=== PATIENT | female | born 1955 | race Caucasian/White ===

== ENCOUNTER 2017-01-10 12:04 | Inpatient (IN) | payer OTHER, MEDICARE ==
--- NOTE | 2017-01-10 12:40 | PDOC ---
History of Present Illness - General Chief Complaint: Chest Pain Stated Complaint: PCP SENT, CHEST PAIN, SOB Time Seen by Provider: 01/10/17 12:30 History Source: Patient Exam Limitations: No Limitations - History of Present Illness Initial Comments: CHIEF COMPLAINT: 61 y/o afebrile female with PMH HLD, COPD, HTN, GERD, IDDM, CHF, T7 compression fracture c/o back pain and SOB. HISTORY OF PRESENT ILLNESS: The patient states she has pain in T7, which she always has, but states today the pain became worse and began radiating around under both of her breasts. She states she cannot get comfortable and is short of breath. She did not take her narcotic pain medication because she doesn't like to take them. She denies f/c, n/v/d, abd pain, back pain, fall, new trauma to the back, numbness/tingling. Vital signs on arrival are within normal limits. REVIEW OF SYSTEMS: GENERAL/CONSTITUTIONAL: No fever/chills. No weakness. No weight change. HEAD, EYES, EARS, NOSE AND THROAT: No change in vision. No ear pain or discharge. No sore throat. CARDIOVASCULAR: +chest pain and SOB. RESPIRATORY: No cough, wheezing, or hemoptysis. GASTROINTESTINAL: No abd pain, nausea, vomiting, diarrhea. GENITOURINARY: No dysuria, frequency, or change in urination. MUSCULOSKELETAL: No joint or muscle swelling or pain. No neck pain. +upper back pain SKIN: No rash or easy bruising. NEUROLOGIC: No headache, vertigo, loss of consciousness, or loss of sensation. PHYSICAL EXAM: GENERAL: The patient is awake, alert, and fully oriented, in obvious discomfort. The patient is ambulatory but sitting very uncomfortably on the edge of the bed. She can speak in full sentences. HEAD: Normal with no signs of trauma. ENT: Pupils equal, round and reactive to light, extraocular movements intact, sclera anicteric, conjunctiva clear. Neck supple. LUNGS: Decreased breath sounds left lung chapman. Normal excursion. No respiratory distress or use of accessory muscles. CV: RRR, S1/S2, no MRG. Cap refill < 2 sec. ABDOMEN: Soft, non-distended, non-tender even to deep palpation, no hepatomegaly or splenomegaly, no masses. BACK: +midline thoracic spine TTP around the area of T7. EXTREMITIES: Normal range of motion, no edema. NEUROLOGICAL: Normal speech, normal gait. CN II-XII grossly intact. PSYCH: Normal mood, normal affect. SKIN: Warm, dry, normal turgor, no rashes or lesions noted. Past History - Past Medical History Allergies/Adverse Reactions: Allergies Allergy/AdvReac Type Severity Reaction Status Date / Time Latex, Natural Rubber Allergy Intermediate Hives Verified 01/10/17 12:17 Penicillins Allergy Intermediate Rash Verified 01/10/17 12:17 Home Medications: Ambulatory Orders Atorvastatin Ca [Lipitor] 10 mg PO HS 05/28/16 Budesonide/Formeterol Fumarate [SYMBICORT 160/4.5mcg -] 1 inh PO BID 05/28/16 Diltiazem HCl [Diltiazem 24Hr Cd] 120 mg PO DAILY 05/28/16 Folic Acid 1 mg PO DAILY 05/28/16 Levalbuterol HCl [Xopenex] 0.63 mg IH DAILY 05/28/16 Montelukast Na [Singulair -] 10 mg PO HS 05/28/16 Pantoprazole Sodium [Protonix] 40 mg PO DAILY 05/28/16 Spironolactone 25 mg PO DAILY 05/28/16 Zolpidem Tartrate [Ambien] 10 mg PO HS 05/28/16 Insulin Glargine,Hum.rec.anlog [Lantus (10mL VIAL) -] 18 units SQ AM 10/09/16 Insulin Glargine,Hum.rec.anlog [Lantus (10mL VIAL) -] 20 units SQ HS 10/09/16 Cephalexin Monohydrate [Keflex -] 500 mg PO Q6HPO #14 capsule 10/21/16 Furosemide [Lasix -] 120 mg PO BID@0600,1400 tablet 10/21/16 Guaifenesin/D-Methorphan Hb [Diabetic Tussin Dm -] 10 ml PO Q4H PRN #0 ml Heparin - 5,000 unit SQ BID vial 10/21/16 Mineral Oil/Petrolat,Wht/Water [Eucerin (Large Jar) -] 1 applic TP DAILY PRN #0 jar 10/21/16 Mometasone Furoate [Asmanex 220Mcg -] 2 puff IH BID inhaler 10/21/16 Oxycodone HCl [Roxicodone -] 10 mg PO Q6H PRN #0 tablet MDD 4 tabs 10/21/16 Polyethylene Glycol 3350 [Miralax 119 gm Btl -] 17 gm PO DAILY PRN #0 bottle Silver Sulfadiazine 1% Top Cr [Silvadene -] 1 applic TP DAILY jar 10/21/16 Anemia: No Asthma: Yes (NO RECENT ATTACK) Cancer: No Cardiac Disorders: No CVA: No COPD: Yes CHF: No Dementia: No Diabetes: Yes (IDDM) GI Disorders: Yes (ACID REFLUX) Disorders: No HTN: Yes Hypercholesterolemia: Yes Liver Disease: No Seizures: No Thyroid Disease: No Other medical history: compression fracture t7 - Surgical History Abdominal Surgery: No Appendectomy: Yes Cardiac Surgery: No Cholecystectomy: No Lung Surgery: No Neurologic Surgery: No Orthopedic Surgery: Yes (right hip sx,) - Psycho/Social/Smoking Cessation Hx Anxiety: No Suicidal Ideation: No Smoking Status: Yes Smoking History: Never smoked Have you smoked in the past 12 months: No Number of Cigarettes Smoked Daily: 0 If you are a former smoker, when did you quit?: 20 years ago Information on smoking cessation initiated: No Hx Alcohol Use: No Drug/Substance Use Hx: No Substance Use Type: None Hx Substance Use Treatment: No Cardiac Specific PMH - Complaint Specific PMHX Pacemaker: No *Physical Exam - Vital Signs Last Vital Signs Temp Pulse Resp BP Pulse Ox 98.3 F 74 20 107/60 95 01/10/17 16:08 01/10/17 16:08 01/10/17 16:08 01/10/17 16:08 01/10/17 16:08 ED Treatment Course - LABORATORY CBC & Chemistry Diagram: 01/10/17 14:30 01/10/17 14:30 - ADDITIONAL ORDERS Additional order review: Laboratory Results 01/10/17 01/10/17 14:30 13:30 Sodium 137 138 Potassium 3.2 L 3.4 L Chloride 95 L 92 L Carbon Dioxide 32 30 Anion Gap 10 16 BUN 22 H 21 H D Creatinine 1.3 H 1.4 H D Creat Clearance w eGFR 41.37 37.98 Random Glucose 138 H 155 H D Calcium 9.1 8.9 Total Bilirubin 0.6 0.7 D AST 25 31 D ALT 16 14 D Alkaline Phosphatase 123 H 133 H Creatine Kinase 95 Troponin I < 0.02 B-Natriuretic Peptide 407.24 H Total Protein 7.1 7.5 Albumin 2.9 L 3.1 L 01/10/17 01/10/17 14:30 13:30 RBC 3.97 D Cancelled MCV 95.9 Cancelled MCHC 33.7 Cancelled RDW 13.6 Cancelled MPV 8.2 Cancelled Neutrophils % 78.4 Cancelled Lymphocytes % 12.9 D Cancelled Monocytes % 7.0 Cancelled Eosinophils % 0.9 Cancelled Basophils % 0.8 Cancelled - RADIOLOGY Radiology Studies Ordered: Category Date Time Status CHEST CTA [CT] Stat CT Scan 01/10/17 15:[address] W/O CONTRAST [CT] Stat CT Scan 01/10/17 13:35 Completed CHEST X-RAY PORTABLE* [RAD] Stat Radiology 01/10/17 12:41 Completed - Medications Given in the ED: ED Medications Discontinued Medications Generic Name Dose Route Start Last Admin Trade Name Freq PRN Reason Stop Dose Admin Hydromorphone HCl 1 mg 01/10/17 13:55 01/10/17 14:00 Dilaudid Injection - IVPUSH 01/10/17 13:56 1 mg ONCE ONE Administration Hydromorphone HCl 1 mg 01/10/17 16:19 01/10/17 16:19 Dilaudid Injection - IVPUSH 01/10/17 16:20 1 mg NOW ONE Administration Morphine Sulfate 4 mg 01/10/17 12:41 01/10/17 12:59 Morphine Injection - IVPUSH 01/10/17 12:42 4 mg ONCE ONE Administration Morphine Sulfate 4 mg 01/10/17 13:49 01/10/17 14:00 Morphine Injection - IVPUSH 01/10/17 13:50 4 mg ONCE ONE Administration Medical Decision Making - Medical Decision Making A/P: 61 y/o female with back pain most likely secondary to T7 compression fracture radiating around to chest. Plan is as follows: 1. EKG 2. CXR 3. Labs 4. Thoracic spine CT 5. IV morphine After the morphine the patient was still in a considerable amount of pain. Ordered IV Dilaudid. CXR IMPRESSION: No change since 01/07/[address] IMPRESSION: A marked acute/subacute T7 vertebral body compression fracture is noted with mild bony retropulsion, approximately 3mm. This fracture appears mildly increased in compressive deformity in comparison to a thoracic spine MRI study of 01/05/17. The degree of retropulsion appears unchanged. Spoke with the patient and she now states she does feel some pain relief but when she moved to go to the bathroom she started to feel pain and SOB again. Would like to send for a chest CTA but her creatinine is 1.4. Called Dr. Curran for admission. Dr. Nicholson called for [facility] and accepts admission. *DC/Admit/Observation/Transfer Diagnosis at time of Disposition: Shortness of breath, Traumatic compression fracture of T7 thoracic vertebra Chest pain Qualifiers: Chest pain type: unspecified Qualified Code(s): R07.9 - Chest pain, unspecified - Discharge Dispostion Admit: Yes Decision to Admit order Date/Time: Decision to Admit Order Category Date Time Status Decision to Admit to Hospital Routine Admission 01/10/17 16:30 Active - Referrals Referrals: José Curran MD [Primary Care Provider] -
[2017-01-10] MEDS ORDERED: morphine CARPU-JECT 4 MG/1 ML DISP.SYRIN IVPUSH ONE ×2 (12:41→13:49)
[2017-01-10] MEDS ORDERED: morphine CARPU-JECT 4 MG/1 ML DISP.SYRIN ONE (12:46)
[2017-01-10] MEDS ORDERED: HYDROmorphone HCL CARPU-JECT 1 MG/1 ML DISP.SYRIN IVPUSH ONE ×2 (13:55→16:19)
[2017-01-10] MEDS ORDERED: HYDROmorphone HCL CARPU-JECT 1 MG/1 ML DISP.SYRIN ONE ×2 (13:56→16:05)
[2017-01-10 14:09] LABS: ALBUMIN 3.1 g/dl (3.4-5.0); ANION GAP 16 (8-16); BILIRUBIN,TOTAL 0.7 mg/dL (0.2-1.0); CALCIUM 8.9 mg/dL (8.5-10.1); CO2 30 mmol/L (21-32); CREATININE 1.4 mg/dL (0.55-1.02); GLUCOSE,RANDOM 155 mg/dL (74-106); SGPT/ALT 14 U/L (12-78); TOT PROT 7.5 g/dl (6.4-8.2)
[2017-01-10 14:12] LABS: ALK PHOS 133 U/L (45-117); TROPONIN I < 0.02 ng/ml (0.00-0.05)
[2017-01-10 14:19] LABS: SGOT/AST 31 U/L (15-37)
[2017-01-10 14:33] LABS: BASOPHIL 0.8 % (0-2.0); EOSINOPHIL 0.9 % (0-4.5); MCH 32.4 pg (25.7-33.7); MCHC 33.7 g/dl (32.0-36.0); MEAN CELL VOLUME 95.9 fl (80-96); MEAN PLT VOLUME 8.2 fl (7.5-11.1); NEUTROPHILS 78.4 % (42.8-82.8); PLATELET COUNT 355 K/MM3 (134-434); RDW 13.6 % (11.6-15.6); WHITE BLOOD COUNT 14.5 K/mm3 (4.0-10.0)
[2017-01-10 15:16] LABS: ALBUMIN 2.9 g/dl (3.4-5.0); BILIRUBIN,TOTAL 0.6 mg/dL (0.2-1.0); CALCIUM 9.1 mg/dL (8.5-10.1); CREATININE 1.3 mg/dL (0.55-1.02); TOT PROT 7.1 g/dl (6.4-8.2)
[2017-01-10 16:34] LABS: URINE APPEARANCE SLCLOUDY; URINE BILIRUBIN NEGATIVE (NEGATIVE); URINE BLOOD NEGATIVE (NEGATIVE); URINE COLOR YELLOW; URINE GLUCOSE (UA) NEGATIVE (NEGATIVE); URINE KETONE NEGATIVE (NEGATIVE); URINE NITRITE NEGATIVE (NEGATIVE); URINE PROTEIN NEGATIVE (NEGATIVE); URINE UROBILINOGEN NEGATIVE E.U./dl (0.2-1.0)
[2017-01-10 16:43] LABS: URINE LEUK ESTERASE TRACE (NEGATIVE)
[2017-01-10 16:44] LABS: URINE BACTERIA RARE /hpf (NONE SEEN); URINE HYALINE CAST 22 /lpf; URINE MUCUS RARE; URINE RBC <1 /hpf (0-3); URINE WBC 8 /hpf (3-5)
[2017-01-10] MEDS ORDERED: ALBUTEROL SO4 0.083% IH SOL 2.5 MG/3 ML VIAL.NEB. NEB ONE ×2 (16:45→19:15)
[2017-01-10] MEDS ORDERED: POTASSIUM CHLORIDE TABS 20 MEQ TABLET.ER (FP) PO ONE (17:16)
[2017-01-10] MEDS ORDERED: KETOROLAC TROMETHAMINE 15 MG/ML VIAL IVPB ONE (17:24)
[2017-01-10] MEDS ORDERED: CYCLOBENZAPRINE HCL 10 MG TABLET (FP) PO ONE (17:24)
[2017-01-10] MEDS ORDERED: predniSONE 20 MG TABLET (UD) PO ONE (17:25)
[2017-01-10] MEDS ORDERED: HYDROmorphone HCL CARPU-JECT 2 MG/1 ML DISP.SYRIN IVPB PRN (17:27)
[2017-01-10] MEDS ORDERED: KETOROLAC TROMETHAMINE 30 MG/1 ML VIAL ONE (17:29)
[2017-01-10] MEDS: KETOROLAC TROMETHAMINE 15 MG/ML VIAL IM ONE ×2 (17:31→17:36)
[2017-01-10 18:17] VITALS: BMI 36.5
[2017-01-10] MEDS: LIDOCAINE 5% TOPICAL PATCH TP SCH (18:54)
--- NOTE | 2017-01-10 20:38 | HP ---
Admitting History and Physical - Admission Chief Complaint: severe thoracic pain radiating to the right anterior hemithorax History of Present Illness: I was asked to see and evaluate this 61 y female , during Doctor Androne's absence. This is a 61 yo female with PMH of Chronic BAck pain, developed intractable back pain which developed spontaneously,without any triggering factors, difficult to control with her routine pain medications. The patient is tearful and unable to find a comfortable position while I am examining her. 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 venous changes) - Past Surgical History Past Surgical History: Yes: Appendectomy - Smoking History Smoking history: Former smoker Have you smoked in the past 12 months: No Aproximately how many cigarettes per day: 0 If you are a former smoker, when did you quit?: 20 years ago - Alcohol/Substance Use Hx Alcohol Use: No Home Medications - Allergies Allergies/Adverse Reactions: Allergies Allergy/AdvReac Type Severity Reaction Status Date / Time Latex, Natural Rubber Allergy Intermediate Hives Verified 01/10/17 12:17 Penicillins Allergy Intermediate Rash Verified 01/10/17 12:17 - Home Medications Home Medications: Ambulatory Orders Albuterol 2.5/Ipratropium 0.5 [Duoneb -] 1 amp NEB Q4H PRN #0 amp 01/15/17 Atorvastatin Ca [Lipitor] 10 mg PO HS tablet 01/15/17 Azithromycin [Zithromax 250mg Tablets -] 500 mg PO DAILY #6 tablet 01/15/17 Budesonide/Formeterol Fumarate [SYMBICORT 80/4.5mcg -] 2 puff IH BID inhaler Diltiazem Cd [Cardizem Cd -] 120 mg PO DAILY 01/15/17 Docusate Sodium [Colace -] 100 mg PO BID PRN #0 01/15/17 Folic Acid - 1 mg PO DAILY tablet 01/15/17 Furosemide [Lasix -] 120 mg PO BID@0600,1400 tablet 01/15/17 Guaifenesin [Robitussin -] 10 ml PO Q4H PRN #60 dose MDD 6 01/15/17 Hydromorphone [Dilaudid -] 4 mg PO Q4H PRN #120 tablet MDD 4 01/15/17 Insulin (Levemir) [Levemir Vial] 18 units SQ AM ml 01/15/17 Insulin (Levemir) [Levemir Vial] 20 units SQ HS ml 01/15/17 Insulin Sliding Scale [Novolog Vial Sliding Scale -] 1 vial SQ ACHS units 01/15 Lidocaine 5% Patch [Lidoderm -] 2 patch TP DAILY patch 01/15/17 Magnesium Hydrox 2400MG/30Ml [Milk of Magnesia -] 30 ml PO BID PRN #0 01/15/17 Methocarbamol [Robaxin -] 750 mg PO QID tablet 01/15/17 Mometasone Furoate [Asmanex 220Mcg -] 2 puff IH BID inhaler 01/15/17 Montelukast Na [Singulair -] 10 mg PO HS tablet 01/15/17 Pantoprazole Sodium [Protonix -] 40 mg PO DAILY 01/15/17 Polyethylene Glycol 3350 [Miralax 119 gm Btl -] 17 gm PO DAILY bottle 01/15/17 Potassium Chloride [K-Dur -] 40 meq PO BID 01/15/17 Spironolactone [Aldactone -] 25 mg PO DAILY tablet 01/15/17 Vitamin A & D Top Oint - 1 applic TP Q6HPO tube 01/15/17 Zolpidem Tartrate [Ambien] 5 mg PO HS PRN #30 tablet MDD 1 01/15/17 Review of Systems - Review of Systems Constitutional: reports: Other (severe pain) Eyes: reports: No Symptoms HENT: reports: No Symptoms, Gingival Bleeding Neck: reports: No Symptoms Cardiovascular: denies: Chest Pain, Palpitations, Shortness of Breath Respiratory: reports: No Symptoms Gastrointestinal: reports: Constipation Integumentary: reports: No Symptoms Neurological: reports: No Symptoms Psychiatric: reports: No Symptoms Physical Examination Vital Signs: Vital Signs Temperature 98.2 F 01/10/17 18:11 Pulse Rate 100 H 01/10/17 18:11 Respiratory Rate 20 01/10/17 18:11 Blood Pressure 145/83 01/10/17 18:11 O2 Sat by Pulse Oximetry (%) 95 03/18/17 18:22 Constitutional: Yes: Well Nourished, Severe Distress, Obese Eyes: Yes: Conjunctiva Clear, EOM Intact, PERRL HENT: Yes: Atraumatic, Normocephalic Neck: Yes: Supple, Trachea Midline Cardiovascular: Yes: Regular Rate and Rhythm, S1, S2 Respiratory: Yes: Regular, CTA Bilaterally Gastrointestinal: Yes: Normal Bowel Sounds, Soft, Abdomen, Obese. No: Hepatomegaly, Splenomegaly ...Rectal Exam: Yes: Deferred Musculoskeletal: Yes: Other (upper back pain, unable to find a comfortable position) Extremities: No: Calf Tenderness Edema: No Peripheral Pulses WNL: Yes Neurological: Yes: Alert, Oriented, Weakness (in the lower etxremities) Psychiatric: Yes: Alert, Oriented Problem List - Problems (1) Traumatic compression fracture of T7 thoracic vertebra Assessment/Plan: lidoderm patches Flexeril, dilaudid pain management consultation Code(s): S22.060A - WEDGE COMPRESSION FRACTURE OF T7-T8 VERTEBRA, INIT (2) Intractable pain Assessment/Plan: as above Code(s): R52 - PAIN, UNSPECIFIED (3) COPD (chronic obstructive pulmonary disease) with chronic bronchitis Code(s): J44.9 - CHRONIC OBSTRUCTIVE PULMONARY DISEASE, UNSPECIFIED (4) Chronic musculoskeletal pain Assessment/Plan: as above, dilaudid Code(s): M79.1 - MYALGIA G89.29 - OTHER CHRONIC PAIN (5) Hypokalemia Assessment/Plan: replenish potassium as needed Code(s): E87.6 - HYPOKALEMIA (6) Congestive heart failure Assessment/Plan: edema, correct diuretic dosage Code(s): I50.9 - HEART FAILURE, UNSPECIFIED (7) IDDM (insulin dependent diabetes mellitus) Assessment/Plan: continue LAntus 18 units q Am and 20 units Q pm Code(s): E11.9 - TYPE 2 DIABETES MELLITUS WITHOUT COMPLICATIONS Z79.4 - SKILLED NURSING (CURRENT) USE OF INSULIN
[2017-01-10] MEDS: HYDROmorphone HCL CARPU-JECT 1 MG/1 ML DISP.SYRIN IVPB PRN (21:15)
[2017-01-10] MEDS: CYCLOBENZAPRINE HCL 10 MG TABLET (FP) PO PRN (23:47)
[2017-01-10] MEDS: ZOLPIDEM TARTRATE 5 MG TABLET PO PRN (23:47)
[2017-01-10] MEDS: MOMETASONE FUROATE 220 MCG/IH INHALER IH SCH (23:48)
[2017-01-10] MEDS: ATORVASTATIN CA 10 MG TABLET (FP) PO SCH (23:48)
[2017-01-10] MEDS: INSULIN DETEMIR 100 UNITS/ML MDV SQ SCH (23:49)
[2017-01-10] MEDS: INSULIN SLIDING SCALE (NOVOLOG) 1 VIAL SQ SCH (23:50)
[2017-01-11] MEDS: HYDROmorphone HCL CARPU-JECT 1 MG/1 ML DISP.SYRIN IVPB PRN ×6 (01:50→22:44)
[2017-01-11] MEDS: FUROSEMIDE 40 MG TABLET (FP) PO SCH ×2 (06:18→14:26)
[2017-01-11] MEDS: INSULIN SLIDING SCALE (NOVOLOG) 1 VIAL SQ SCH ×4 (07:19→21:29)
[2017-01-11] MEDS: INSULIN DETEMIR 100 UNITS/ML MDV SQ SCH ×2 (07:19→21:31)
[2017-01-11] MEDS: ALBUTEROL SO4 0.083% IH SOL 2.5 MG/3 ML VIAL.NEB. NEB PRN ×2 (09:15→14:28)
[2017-01-11] MEDS ORDERED: PT OWN MED DRAWER 7, Y5N ONE (10:02)
[2017-01-11] MEDS: SPIRONOLACTONE 25 MG TABLET (FP) PO SCH (10:03)
[2017-01-11] MEDS: PANTOPRAZOLE 40 MG TABLET (FP) PO SCH (10:04)
[2017-01-11] MEDS: POLYETHYLENE GLYCOL 3350 119 GM BTL PO SCH (10:04)
[2017-01-11] MEDS: LIDOCAINE 5% TOPICAL PATCH TP SCH (10:04)
[2017-01-11] MEDS: MOMETASONE FUROATE 220 MCG/IH INHALER IH SCH ×2 (10:05→21:34)
[2017-01-11] MEDS: CYCLOBENZAPRINE HCL 10 MG TABLET (FP) PO PRN ×2 (10:29→20:19)
[2017-01-11] MEDS ORDERED: guaiFENesin 200 MG/10 ML 10 ML UNIT-DOSE CUPS PO PRN (13:53)
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
[2017-01-11] MEDS ORDERED: IBUPROFEN 600 MG TABLET (FP) PO PRN (13:57)
[2017-01-11] MEDS ORDERED: POTASSIUM CHLORIDE TABS 20 MEQ TABLET.ER (FP) PO SCH (14:00)
[2017-01-11] MEDS: FOLIC ACID 1 MG TABLET (FP) PO SCH (14:26)
[2017-01-11] MEDS: AZITHROMYCIN 250 MG TABLET (FP) PO SCH (14:35)
[2017-01-11] MEDS: BUDESONIDE/FORMETEROL FUMARATE 80/4.5 mcg INHALER IH SCH ×2 (17:40→21:34)
[2017-01-11] MEDS: VITAMINS A AND D TOPICAL OINTMENT 60 GM TUBE TP SCH (17:40)
[2017-01-11] MEDS: ATORVASTATIN CA 10 MG TABLET (FP) PO SCH (21:28)
[2017-01-11] MEDS: POTASSIUM CHLORIDE TABS 20 MEQ TABLET.ER (FP) PO SCH (21:28)
[2017-01-11] MEDS: MONTELUKAST NA 10 MG TABLET PO SCH (21:29)
[2017-01-12] MEDS: HYDROmorphone HCL CARPU-JECT 1 MG/1 ML DISP.SYRIN IVPB PRN ×4 (02:13→20:38)
[2017-01-12] MEDS: VITAMINS A AND D TOPICAL OINTMENT 60 GM TUBE TP SCH ×4 (02:17→17:28)
[2017-01-12] MEDS: CYCLOBENZAPRINE HCL 10 MG TABLET (FP) PO PRN ×2 (03:24→08:36)
[2017-01-12] MEDS: FUROSEMIDE 40 MG TABLET (FP) PO SCH ×2 (06:27→13:37)
[2017-01-12] MEDS: INSULIN SLIDING SCALE (NOVOLOG) 1 VIAL SQ SCH ×4 (06:27→21:50)
[2017-01-12] MEDS: INSULIN DETEMIR 100 UNITS/ML MDV SQ SCH ×2 (06:31→21:57)
[2017-01-12] MEDS: ALBUTEROL SO4 0.083% IH SOL 2.5 MG/3 ML VIAL.NEB. NEB PRN ×2 (06:37→13:18)
[2017-01-12 08:33] LABS: BASOPHIL 0.8 % (0-2.0); EOSINOPHIL 2.7 % (0-4.5); MCH 32.5 pg (25.7-33.7); MCHC 33.6 g/dl (32.0-36.0); MEAN CELL VOLUME 96.7 fl (80-96); MEAN PLT VOLUME 8.9 fl (7.5-11.1); NEUTROPHILS 66.6 % (42.8-82.8); PLATELET COUNT 300 K/MM3 (134-434); RDW 14.1 % (11.6-15.6); WHITE BLOOD COUNT 9.9 K/mm3 (4.0-10.0)
[2017-01-12 08:53] LABS: ALBUMIN 2.6 g/dl (3.4-5.0); ALK PHOS 290 U/L (45-117); ANION GAP 10 (8-16); BILIRUBIN,TOTAL 1.5 mg/dL (0.2-1.0); CALCIUM 8.8 mg/dL (8.5-10.1); CO2 35 mmol/L (21-32); CREATININE 0.8 mg/dL (0.55-1.02); GLUCOSE,RANDOM 133 mg/dL (74-106); SGOT/AST 191 U/L (15-37); SGPT/ALT 71 U/L (12-78); TOT PROT 6.7 g/dl (6.4-8.2)
--- NOTE | 2017-01-12 09:26 | PN ---
Progress Note (short form) - Note Progress Note: CT scan reviewed- acute T7 fracture. I will stop by later today to see the patient. The patient can consider a kyphoplasty.
[2017-01-12] MEDS ORDERED: PT OWN MED DRAWER 7, Y5N ONE ×3 (10:22→17:39)
[2017-01-12] MEDS: POTASSIUM CHLORIDE TABS 20 MEQ TABLET.ER (FP) PO SCH ×2 (10:30→21:57)
[2017-01-12] MEDS: PANTOPRAZOLE 40 MG TABLET (FP) PO SCH (10:30)
[2017-01-12] MEDS: AZITHROMYCIN 250 MG TABLET (FP) PO SCH (10:31)
[2017-01-12] MEDS: FOLIC ACID 1 MG TABLET (FP) PO SCH (10:33)
[2017-01-12] MEDS: SPIRONOLACTONE 25 MG TABLET (FP) PO SCH (10:33)
[2017-01-12] MEDS: DOCUSATE SODIUM 100 MG CAPSULE (FP) PO PRN (10:33)
[2017-01-12] MEDS: LIDOCAINE 5% TOPICAL PATCH TP SCH (10:34)
[2017-01-12] MEDS: POLYETHYLENE GLYCOL 3350 119 GM BTL PO SCH (10:35)
[2017-01-12] MEDS: MOMETASONE FUROATE 220 MCG/IH INHALER IH SCH ×2 (10:35→21:56)
[2017-01-12] MEDS: BUDESONIDE/FORMETEROL FUMARATE 80/4.5 mcg INHALER IH SCH ×2 (10:35→21:57)
[2017-01-12] MEDS ORDERED: MAGNESIUM HYDROX 2400MG/30ML ORAL SUSPENSION 30 ML CUP PO PRN (12:10)
--- NOTE | 2017-01-12 12:10 | PN ---
Progress Note, Physician Chief Complaint: patient still complaining of pain, but feel much better compared to the previous day, in no pain when sitting still, was tearful earlier today because of pain, complains of muscle spasms and Flexeril is not changing - Current Medication List Current Medications: Active Medications Albuterol Sulfate (Ventolin 0.083% Nebulizer Soln -) 1 amp NEB Q6H PRN PRN Reason: SHORT OF BREATH/WHEEZING Last Admin: 01/12/17 06:37 Dose: 1 amp Atorvastatin Calcium (Lipitor -) 10 mg PO HS [facility] Last Admin: 01/11/17 21:28 Dose: 10 mg Azithromycin (Zithromax -) 500 mg PO DAILY [facility] Stop: 01/15/17 23:59 Last Admin: 01/12/17 10:31 Dose: 500 mg Budesonide/Formoterol Fumarate (Symbicort 80/4.5mcg -) 2 puff IH BID [facility] Last Admin: 01/12/17 10:35 Dose: 2 inhaler Diltiazem HCl (Cardizem Cd -) 120 mg PO DAILY [facility] Last Admin: 01/12/17 10:33 Dose: 120 mg Docusate Sodium (Colace -) 100 mg PO BID PRN PRN Reason: CONSTIPATION Last Admin: 01/12/17 10:33 Dose: 100 mg Folic Acid (Folic Acid -) 1 mg PO DAILY [facility] Last Admin: 01/12/17 10:33 Dose: 1 mg Furosemide (Lasix -) 120 mg PO BID@0600,1400 [facility] Last Admin: 01/12/17 06:27 Dose: 120 mg Guaifenesin (Robitussin -) 10 ml PO Q4H PRN PRN Reason: COUGH Last Admin: 01/11/17 14:26 Dose: 10 ml Hydromorphone HCl (Dilaudid Injection -) 2 mg IVPB Q6H PRN PRN Reason: PAIN Hydromorphone HCl (Dilaudid Injection -) 1 mg IVPB Q4H PRN PRN Reason: PAIN Last Admin: 01/12/17 10:33 Dose: 1 mg Insulin Aspart (Novolog Vial Sliding Scale -) 0 vial SQ ACHS [facility] PRN Reason: Protocol Last Admin: 01/12/17 11:49 Dose: Not Given Insulin Detemir (Levemir Vial) 20 units SQ [facility] Last Admin: 01/11/17 21:31 Dose: 20 units Insulin Detemir (Levemir Vial) 18 units SQ AM [facility] Last Admin: 01/12/17 06:31 Dose: 18 units Lidocaine (Lidoderm Patch -) 2 patch TP DAILY [facility] Last Admin: 01/12/17 10:34 Dose: 2 patch Methocarbamol (Robaxin -) 750 mg PO QID [facility] Mometasone Furoate (Asmanex 220mcg -) 2 puff IH BID [facility] Last Admin: 01/12/17 10:35 Dose: 2 puff Montelukast Sodium (Singulair -) 10 mg PO HS [facility] Last Admin: 01/11/17 21:29 Dose: 10 mg Pantoprazole Sodium (Protonix -) 40 mg PO DAILY [facility] Last Admin: 01/12/17 10:30 Dose: 40 mg Polyethylene Glycol (Miralax (For Daily Use) -) 17 gm PO DAILY [facility] Last Admin: 01/12/17 10:35 Dose: Not Given Potassium Chloride (K-Dur -) 40 meq PO BID [facility] Last Admin: 01/12/17 10:30 Dose: 40 meq Spironolactone (Aldactone -) 25 mg PO DAILY [facility] Last Admin: 01/12/17 10:33 Dose: 25 mg Vitamin A/Vitamin D (Vitamin A & D Top Oint -) 1 applic TP Q6HPO [facility] Last Admin: 01/12/17 06:28 Dose: 1 applic Zolpidem Tartrate (Ambien -) 5 mg PO HS PRN PRN Reason: INSOMNIA Last Admin: 01/10/17 23:47 Dose: 5 mg - Objective Vital Signs: Vital Signs Temperature 98.1 F 01/12/17 06:17 Pulse Rate 86 01/12/17 06:17 Respiratory Rate 18 01/12/17 06:17 Blood Pressure 130/67 01/12/17 06:17 O2 Sat by Pulse Oximetry (%) 95 01/11/17 21:00 Constitutional: Yes: Calm Eyes: Yes: Conjunctiva Clear, EOM Intact HENT: Yes: Atraumatic, Normocephalic Neck: Yes: Supple, Trachea Midline Cardiovascular: Yes: Regular Rate and Rhythm, S1, S2 Respiratory: Yes: Regular, CTA Bilaterally Gastrointestinal: Yes: Normal Bowel Sounds, Soft, Abdomen, Obese ...Rectal Exam: Yes: Deferred Genitourinary: Yes: WNL Musculoskeletal: Yes: Other (edema of lower extremities) Extremities: Yes: Erythema (of anterior shins). No: Calf Tenderness Wound/Incision: Yes: Well Approximated Neurological: Yes: Alert, Oriented Psychiatric: Yes: Alert, Oriented Labs: CBC, BMP 01/12/17 07:00 01/12/17 07:00 Problem List - Problems (1) Traumatic compression fracture of T7 thoracic vertebra Assessment/Plan: lidoderm patches change Flexeril to Robaxin, continue dilaudid pain management consultation Code(s): S22.060A - WEDGE COMPRESSION FRACTURE OF T7-T8 VERTEBRA, INIT (2) COPD (chronic obstructive pulmonary disease) with chronic bronchitis Code(s): J44.9 - CHRONIC OBSTRUCTIVE PULMONARY DISEASE, UNSPECIFIED (3) Hypokalemia Assessment/Plan: replenish potassium with 40 Estelita po bid Code(s): E87.6 - HYPOKALEMIA (4) Constipation Assessment/Plan: milk of magnesia 30 cc po bid pr Code(s): K59.00 - CONSTIPATION, UNSPECIFIED
[2017-01-12] MEDS: METHOCARBAMOL 750 MG TABLET PO SCH ×3 (13:37→21:57)
--- NOTE | 2017-01-12 19:37 | CONSULT ---
Consult Consult Specialty:: pain medicine Referred by:: dr lee Reason for Consultation:: mid back pain - History of Present Illness Chief Complaint: mid back pain History of Present Illness: 61 year old woman with a history of mid back pain found to have severe compression T7 fracture. Patient has history of COPD and DM. Pain score 10/10. Patient was seen on Thursday in my office but could not wait to get work up completed due to pain. She denies numbness and tingling. - Past Medical History COUNSEL: Yes: Other (Back pain) Cardio/Vascular: Yes: HTN, Hyperlipdemia Pulmonary: Yes: COPD Gastrointestinal: Yes: GERD ...: No Endocrine: Yes: Diabetes Mellitus Dermatology: Yes: Other (Chr. venous changes) - Past Surgical History Past Surgical History: Yes: Appendectomy - Alcohol/Substance Use Hx Alcohol Use: No - Smoking History Smoking history: Former smoker Have you smoked in the past 12 months: No Aproximately how many cigarettes per day: 0 If you are a former smoker, when did you quit?: 20 years ago Home Medications - Allergies Allergies/Adverse Reactions: Allergies Allergy/AdvReac Type Severity Reaction Status Date / Time Latex, Natural Rubber Allergy Intermediate Hives Verified 01/10/17 12:17 Penicillins Allergy Intermediate Rash Verified 01/10/17 12:17 - Home Medications Home Medications: Ambulatory Orders Atorvastatin Ca [Lipitor] 10 mg PO HS 05/28/16 Diltiazem HCl [Diltiazem 24Hr Cd] 120 mg PO DAILY 05/28/16 Folic Acid 1 mg PO DAILY 05/28/16 Montelukast Na [Singulair -] 10 mg PO HS 05/28/16 Pantoprazole Sodium [Protonix] 40 mg PO DAILY 05/28/16 Spironolactone 25 mg PO DAILY 05/28/16 Zolpidem Tartrate [Ambien] 10 mg PO HS 05/28/16 Insulin Glargine,Hum.rec.anlog [Lantus (10mL VIAL) -] 18 units SQ AM 10/09/16 Insulin Glargine,Hum.rec.anlog [Lantus (10mL VIAL) -] 20 units SQ HS 10/09/16 Furosemide [Lasix -] 120 mg PO BID@0600,1400 tablet 10/21/16 Mometasone Furoate [Asmanex 220Mcg -] 2 puff IH BID inhaler 10/21/16 Oxycodone HCl [Roxicodone -] 10 mg PO Q6H PRN #0 tablet MDD 4 tabs 10/21/16 Polyethylene Glycol 3350 [Miralax 119 gm Btl -] 17 gm PO DAILY PRN #0 bottle Physical Exam Vital Signs: Vital Signs Temperature 99.5 F 01/12/17 15:28 Pulse Rate 98 H 01/12/17 15:28 Respiratory Rate 20 01/12/17 15:28 Blood Pressure 117/76 01/12/17 15:28 O2 Sat by Pulse Oximetry (%) 95 01/12/17 09:00 Musculoskeletal: Yes: Other (severe mid back pain) Labs: CBC, BMP 01/12/17 07:00 01/12/17 07:00 Assessment/Plan T7 Acute compression fracture Minimal retropulsion 1. FOr kyphoplasty tomorrow at 5:30. Patient understands all the risks including but not limited to infection, bleeding and cement extravasation and benefits and would like to procedure 2. Continue current pain meds 3. NPO after 9am tomorrow
[2017-01-12] MEDS: ATORVASTATIN CA 10 MG TABLET (FP) PO SCH (21:57)
[2017-01-12] MEDS: MONTELUKAST NA 10 MG TABLET PO SCH (21:57)
[2017-01-12] MEDS: ZOLPIDEM TARTRATE 5 MG TABLET PO PRN ×2 (22:00→22:01)
[2017-01-13] MEDS: HYDROmorphone HCL CARPU-JECT 1 MG/1 ML DISP.SYRIN IVPB PRN ×4 (03:28→23:42)
[2017-01-13] MEDS: INSULIN DETEMIR 100 UNITS/ML MDV SQ SCH ×2 (06:09→21:13)
[2017-01-13] MEDS: FUROSEMIDE 40 MG TABLET (FP) PO SCH ×2 (06:09→15:14)
[2017-01-13] MEDS: VITAMINS A AND D TOPICAL OINTMENT 60 GM TUBE TP SCH ×5 (06:10→17:49)
[2017-01-13] MEDS: INSULIN SLIDING SCALE (NOVOLOG) 1 VIAL SQ SCH ×4 (06:10→21:13)
[2017-01-13] MEDS: ALBUTEROL SO4 0.083% IH SOL 2.5 MG/3 ML VIAL.NEB. NEB PRN ×2 (07:46→11:17)
[2017-01-13] MEDS ORDERED: PT OWN MED DRAWER 7, Y5N ONE ×5 (09:04→17:32)
[2017-01-13] MEDS: SPIRONOLACTONE 25 MG TABLET (FP) PO SCH (09:08)
[2017-01-13] MEDS: PANTOPRAZOLE 40 MG TABLET (FP) PO SCH (09:08)
[2017-01-13] MEDS: DOCUSATE SODIUM 100 MG CAPSULE (FP) PO PRN (09:08)
[2017-01-13] MEDS: METHOCARBAMOL 500 MG TABLET PO SCH ×4 (09:09→21:13)
[2017-01-13] MEDS: FOLIC ACID 1 MG TABLET (FP) PO SCH (09:09)
[2017-01-13] MEDS: POTASSIUM CHLORIDE TABS 20 MEQ TABLET.ER (FP) PO SCH ×2 (09:09→21:12)
[2017-01-13] MEDS: AZITHROMYCIN 250 MG TABLET (FP) PO SCH (09:09)
[2017-01-13] MEDS: LIDOCAINE 5% TOPICAL PATCH TP SCH (09:09)
[2017-01-13] MEDS: MOMETASONE FUROATE 220 MCG/IH INHALER IH SCH ×2 (09:10→21:12)
[2017-01-13] MEDS: BUDESONIDE/FORMETEROL FUMARATE 80/4.5 mcg INHALER IH SCH ×2 (09:10→21:14)
[2017-01-13] MEDS: POLYETHYLENE GLYCOL 3350 119 GM BTL PO SCH (09:10)
[2017-01-13 10:03] LABS: ALBUMIN 2.9 g/dl (3.4-5.0); ALK PHOS 275 U/L (45-117); ANION GAP 8 (8-16); CALCIUM 9.4 mg/dL (8.5-10.1); CO2 35 mmol/L (21-32); CREATININE 0.8 mg/dL (0.55-1.02); GLUCOSE,RANDOM 96 mg/dL (74-106); SGOT/AST 74 U/L (15-37); SGPT/ALT 57 U/L (12-78); TOT PROT 7.4 g/dl (6.4-8.2)
[2017-01-13 10:05] LABS: BASOPHIL 0.9 % (0-2.0); EOSINOPHIL 5.2 % (0-4.5); MCHC 32.6 g/dl (32.0-36.0); MEAN CELL VOLUME 98.2 fl (80-96); MEAN PLT VOLUME 9.5 fl (7.5-11.1); NEUTROPHILS 59.9 % (42.8-82.8); PLATELET COUNT 341 K/MM3 (134-434); WHITE BLOOD COUNT 12.2 K/mm3 (4.0-10.0)
--- NOTE | 2017-01-13 13:18 | EKG ---
Test Reason : Blood Pressure : / mmHG Vent. Rate : 088 BPM Atrial Rate : 088 BPM P-R Int : 166 ms QRS Dur : 094 ms QT Int : 420 ms P-R-T Axes : 057 008 031 degrees QTc Int : 508 ms POOR DATA QUALITY, INTERPRETATION MAY BE ADVERSELY AFFECTED NORMAL SINUS RHYTHM POSSIBLE LEFT ATRIAL ENLARGEMENT CANNOT RULE OUT ANTERIOR INFARCT (CITED ON OR BEFORE 09-OCT-2016) ABNORMAL ECG WHEN COMPARED WITH ECG OF 09-OCT-2016 17:35, NO SIGNIFICANT CHANGE WAS FOUND Confirmed by ANAIS BATES, ZENA ([id number]), offline editor JOHNNY BUCKNER ([id number]) on 01/13/2017 1:18:14 PM Referred By: Confirmed By:ZENA MANZO MD
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
[2017-01-13] MEDS ORDERED: MIDAZOLAM HCL 2 MG/2 ML SINGLE DOSE VIAL ONE ×2 (17:59)
[2017-01-13] MEDS ORDERED: PROPOFOL 20 ML ONE ×2 (18:18→18:25)
[2017-01-13] MEDS ORDERED: CLINDAMYCIN PHOSPHATE 600 MG/4 ML VIAL ONE (18:21)
[2017-01-13] MEDS ORDERED: CLINDAMYCIN 900 MG PREMIX BAG IVPB ONE (18:23)
[2017-01-13] MEDS ORDERED: BUPIVACAINE HCL/PF 0.25% (2.5MG/ML) 10 ML VIAL IJ ONE (18:27)
[2017-01-13] MEDS ORDERED: BUPIVACAINE HCL/PF 0.25% (2.5MG/ML) 10 ML VIAL ONE (18:27)
[2017-01-13] MEDS ORDERED: IOHEXOL 180 MG/1 ML ML IJ ONE (18:31)
[2017-01-13] MEDS ORDERED: MINERAL OIL/PETROLATUM,WHITE 3.5 GM TUBE ONE (18:36)
--- NOTE | 2017-01-13 18:49 | PN ---
Progress Note (short form) - Note Progress Note: Status post kyphoplasty at T7 with biopsy No complications. Please avoid blood thinners for 24hrs. Activity as tolerated. Patient may be discharged tomorrow if patient is feeling better. She should follow up with me in 1 week in my office.
[2017-01-13] MEDS ORDERED: ONDANSETRON 4 MG/2 ML VIAL IVPUSH PRN (18:56)
[2017-01-13] MEDS ORDERED: MAGNESIUM HYDROX 2400MG/30ML ORAL SUSPENSION 30 ML CUP PO PRN (18:59)
[2017-01-13] MEDS ORDERED: guaiFENesin 200 MG/10 ML 10 ML UNIT-DOSE CUPS PO PRN (18:59)
[2017-01-13] MEDS ORDERED: HYDROmorphone HCL CARPU-JECT 2 MG/1 ML DISP.SYRIN IVPB PRN (18:59)
--- NOTE | 2017-01-13 19:56 | PN ---
Progress Note, Physician History of Present Illness: Pt with back pain, worse when turning in the bed. No SOB, CP, Palp, Cough, abd pain Pt was seen in Am on the floor - Current Medication List Current Medications: Active Medications Albuterol Sulfate (Ventolin 0.083% Nebulizer Soln -) 1 amp NEB Q6H PRN PRN Reason: SHORT OF BREATH/WHEEZING Atorvastatin Calcium (Lipitor -) 10 mg PO HS [facility] Azithromycin (Zithromax -) 500 mg PO DAILY [facility] Stop: 01/15/17 23:59 Budesonide/Formoterol Fumarate (Symbicort 80/4.5mcg -) 2 puff IH BID [facility] Diltiazem HCl (Cardizem Cd -) 120 mg PO DAILY [facility] Docusate Sodium (Colace -) 100 mg PO BID PRN PRN Reason: CONSTIPATION Fentanyl (Sublimaze Injection -) 50 mcg IVPUSH [id number] PRN PRN Reason: PAIN Stop: 01/16/17 18:57 Last Admin: 01/13/17 19:03 Dose: 50 mcg Folic Acid (Folic Acid -) 1 mg PO DAILY [facility] Furosemide (Lasix -) 120 mg PO BID@0600,1400 [facility] Guaifenesin (Robitussin -) 10 ml PO Q4H PRN PRN Reason: COUGH Hydromorphone HCl (Dilaudid Injection -) 2 mg IVPB Q6H PRN PRN Reason: PAIN Hydromorphone HCl (Dilaudid Injection -) 1 mg IVPB Q4H PRN PRN Reason: PAIN Insulin Aspart (Novolog Vial Sliding Scale -) 1 vial SQ ACHS [facility] PRN Reason: Protocol Insulin Detemir (Levemir Vial) 20 units SQ HS [facility] Insulin Detemir (Levemir Vial) 18 units SQ AM [facility] Lidocaine (Lidoderm Patch -) 2 patch TP DAILY [facility] Magnesium Hydroxide (Milk Of Magnesia -) 30 ml PO BID PRN PRN Reason: CONSTIPATION Methocarbamol (Robaxin -) 750 mg PO QID [facility] Mometasone Furoate (Asmanex 220mcg -) 2 puff IH BID [facility] Montelukast Sodium (Singulair -) 10 mg PO HS [facility] Ondansetron HCl (Zofran Injection) 4 mg IVPUSH Q6H PRN PRN Reason: NAUSEA AND/OR VOMITING Stop: 01/14/17 00:57 Pantoprazole Sodium (Protonix -) 40 mg PO DAILY [facility] Polyethylene Glycol (Miralax (For Daily Use) -) 17 gm PO DAILY [facility] Potassium Chloride (K-Dur -) 40 meq PO BID [facility] Spironolactone (Aldactone -) 25 mg PO DAILY [facility] Vitamin A/Vitamin D (Vitamin A & D Top Oint -) 1 applic TP Q6HPO [facility] Zolpidem Tartrate (Ambien -) 5 mg PO HS PRN PRN Reason: INSOMNIA - Objective Vital Signs: Vital Signs Temperature 98.4 F 01/13/17 18:49 Pulse Rate 80 01/13/17 19:30 Respiratory Rate 23 01/13/17 19:30 Blood Pressure 132/67 01/13/17 19:30 O2 Sat by Pulse Oximetry (%) 97 01/13/17 19:30 Constitutional: Yes: No Distress, Calm Cardiovascular: Yes: Regular Rate and Rhythm, S1, S2 Respiratory: Yes: Regular, Other (coarse BS bilat at bases) Gastrointestinal: Yes: Normal Bowel Sounds, Soft, Tenderness Integumentary: Yes: Venous Stasis Changes Neurological: Yes: Alert, Oriented Labs: CBC, BMP 01/13/17 07:30 01/13/17 07:30 Problem List - Problems (1) Traumatic compression fracture of T7 thoracic vertebra Assessment/Plan: Kyphoplasty per Dr. Beal Cardio evmaura. Pain control. Code(s): S22.060A - WEDGE COMPRESSION FRACTURE OF T7-T8 VERTEBRA, INIT (2) COPD (chronic obstructive pulmonary disease) with chronic bronchitis Assessment/Plan: O2 suplementatin. Asmanex Albuterol nebulized, PRN Code(s): J44.9 - CHRONIC OBSTRUCTIVE PULMONARY DISEASE, UNSPECIFIED (3) HTN (hypertension) Assessment/Plan: Cont meds To monitor BP Code(s): I10 - ESSENTIAL (PRIMARY) HYPERTENSION Qualifiers: Hypertension type: essential hypertension Qualified Code(s): I10 - Essential (primary) hypertension (4) Hypercholesterolemia Assessment/Plan: Cont. Rx. Code(s): E78.00 - PURE HYPERCHOLESTEROLEMIA, UNSPECIFIED (5) Diabetes mellitus Assessment/Plan: insuline SQ Diet Code(s): E11.9 - TYPE 2 DIABETES MELLITUS WITHOUT COMPLICATIONS Assessment/Plan AM labs
[2017-01-13] MEDS: ATORVASTATIN CA 10 MG TABLET (FP) PO SCH (21:12)
[2017-01-13] MEDS: MONTELUKAST NA 10 MG TABLET PO SCH (21:14)
[2017-01-13] MEDS: ZOLPIDEM TARTRATE 5 MG TABLET PO PRN (23:54)
[2017-01-14] MEDS: HYDROmorphone HCL CARPU-JECT 1 MG/1 ML DISP.SYRIN IVPB PRN (05:11)
[2017-01-14] MEDS: VITAMINS A AND D TOPICAL OINTMENT 60 GM TUBE TP SCH ×5 (06:15→19:39)
[2017-01-14] MEDS: INSULIN SLIDING SCALE (NOVOLOG) 1 VIAL SQ SCH ×4 (06:18→22:16)
[2017-01-14] MEDS: INSULIN DETEMIR 100 UNITS/ML MDV SQ SCH ×2 (06:23→22:16)
[2017-01-14] MEDS: FUROSEMIDE 40 MG TABLET (FP) PO SCH ×2 (06:24→13:55)
[2017-01-14] MEDS: ALBUTEROL SO4 0.083% IH SOL 2.5 MG/3 ML VIAL.NEB. NEB PRN ×2 (07:01→10:29)
[2017-01-14 07:55] LABS: MCHC 32.6 g/dl (32.0-36.0); MEAN CELL VOLUME 98.1 fl (80-96); PLATELET COUNT 311 K/MM3 (134-434); RDW 14.2 % (11.6-15.6)
[2017-01-14 09:23] LABS: CALCIUM 9.2 mg/dL (8.5-10.1); CREATININE 0.7 mg/dL (0.55-1.02)
[2017-01-14] MEDS ORDERED: PT OWN MED DRAWER 7, Y5N ONE ×7 (10:01→22:24)
[2017-01-14] MEDS: POTASSIUM CHLORIDE TABS 20 MEQ TABLET.ER (FP) PO SCH ×2 (10:05→22:00)
[2017-01-14] MEDS: FOLIC ACID 1 MG TABLET (FP) PO SCH (10:05)
[2017-01-14] MEDS: SPIRONOLACTONE 25 MG TABLET (FP) PO SCH (10:05)
[2017-01-14] MEDS: PANTOPRAZOLE 40 MG TABLET (FP) PO SCH (10:06)
[2017-01-14] MEDS: POLYETHYLENE GLYCOL 3350 119 GM BTL PO SCH (10:06)
[2017-01-14] MEDS: AZITHROMYCIN 250 MG TABLET (FP) PO SCH (10:07)
[2017-01-14] MEDS: MOMETASONE FUROATE 220 MCG/IH INHALER IH SCH ×2 (10:07→22:07)
[2017-01-14] MEDS: BUDESONIDE/FORMETEROL FUMARATE 80/4.5 mcg INHALER IH SCH ×2 (10:07→22:06)
[2017-01-14] MEDS: DOCUSATE SODIUM 100 MG CAPSULE (FP) PO PRN (10:14)
[2017-01-14] MEDS: METHOCARBAMOL 500 MG TABLET PO SCH ×4 (10:15→22:02)
[2017-01-14] MEDS: LIDOCAINE 5% TOPICAL PATCH TP SCH (10:21)
--- NOTE | 2017-01-14 10:46 | PN ---
Progress Note, Physician History of Present Illness: Reports cough and wheeze, still with back discomfort. - Current Medication List Current Medications: Active Medications Albuterol Sulfate (Ventolin 0.083% Nebulizer Soln -) 1 amp NEB Q6H PRN PRN Reason: SHORT OF BREATH/WHEEZING Last Admin: 01/14/17 10:29 Dose: 1 amp Atorvastatin Calcium (Lipitor -) 10 mg PO [facility] Last Admin: 01/13/17 21:12 Dose: 10 mg Azithromycin (Zithromax -) 500 mg PO DAILY [facility] Stop: 01/15/17 23:59 Last Admin: 01/14/17 10:07 Dose: 500 mg Budesonide/Formoterol Fumarate (Symbicort 80/4.5mcg -) 2 puff IH BID [facility] Last Admin: 01/14/17 10:07 Dose: 2 puff Diltiazem HCl (Cardizem Cd -) 120 mg PO DAILY [facility] Last Admin: 01/14/17 10:05 Dose: 120 mg Docusate Sodium (Colace -) 100 mg PO BID PRN PRN Reason: CONSTIPATION Last Admin: 01/14/17 10:14 Dose: 100 mg Fentanyl (Sublimaze Injection -) 50 mcg IVPUSH [id number] PRN PRN Reason: PAIN Stop: 01/16/17 18:57 Last Admin: 01/13/17 19:03 Dose: 50 mcg Folic Acid (Folic Acid -) 1 mg PO DAILY [facility] Last Admin: 01/14/17 10:05 Dose: 1 mg Furosemide (Lasix -) 120 mg PO BID@0600,1400 [facility] Last Admin: 01/14/17 06:24 Dose: 120 mg Guaifenesin (Robitussin -) 10 ml PO Q4H PRN PRN Reason: COUGH Hydromorphone HCl (Dilaudid Injection -) 2 mg IVPB Q6H PRN PRN Reason: PAIN Hydromorphone HCl (Dilaudid Injection -) 1 mg IVPB Q4H PRN PRN Reason: PAIN Last Admin: 01/14/17 05:11 Dose: 1 mg Insulin Aspart (Novolog Vial Sliding Scale -) [address] [facility] PRN Reason: Protocol Last Admin: 01/14/17 06:18 Dose: Not Given Insulin Detemir (Levemir Vial) 20 units SQ [facility] Last Admin: 01/13/17 21:13 Dose: 20 unit Insulin Detemir (Levemir Vial) 18 units SQ AM [facility] Last Admin: 01/14/17 06:23 Dose: 18 unit Lidocaine (Lidoderm Patch -) 2 patch TP DAILY [facility] Last Admin: 01/14/17 10:21 Dose: 2 patch Magnesium Hydroxide (Milk Of Magnesia -) 30 ml PO BID PRN PRN Reason: CONSTIPATION Methocarbamol (Robaxin -) 750 mg PO QID [facility] Last Admin: 01/14/17 10:15 Dose: 750 mg Mometasone Furoate (Asmanex 220mcg -) 2 puff IH BID [facility] Last Admin: 01/14/17 10:07 Dose: 2 puff Montelukast Sodium (Singulair -) 10 mg PO HS [facility] Last Admin: 01/13/17 21:14 Dose: 10 mg Pantoprazole Sodium (Protonix -) 40 mg PO DAILY [facility] Last Admin: 01/14/17 10:06 Dose: 40 mg Polyethylene Glycol (Miralax (For Daily Use) -) 17 gm PO DAILY [facility] Last Admin: 01/14/17 10:06 Dose: Not Given Potassium Chloride (K-Dur -) 40 meq PO BID [facility] Last Admin: 01/14/17 10:05 Dose: 40 meq Spironolactone (Aldactone -) 25 mg PO DAILY [facility] Last Admin: 01/14/17 10:05 Dose: 25 mg Vitamin A/Vitamin D (Vitamin A & D Top Oint -) 1 applic TP Q6HPO [facility] Last Admin: 01/14/17 06:15 Dose: Not Given Zolpidem Tartrate (Ambien -) 5 mg PO PRN PRN Reason: INSOMNIA Last Admin: 01/13/17 23:54 Dose: 5 mg - Objective Vital Signs: Vital Signs Temperature 98.4 F 01/14/17 06:00 Pulse Rate 96 H 01/14/17 10:05 Respiratory Rate 20 01/14/17 06:00 Blood Pressure 117/61 01/14/17 06:00 O2 Sat by Pulse Oximetry (%) 98 01/14/17 10:05 Constitutional: Yes: No Distress, Calm Neck: Yes: Supple Cardiovascular: Yes: Regular Rate and Rhythm Respiratory: Yes: Regular, Diminished, Wheezes Gastrointestinal: Yes: Normal Bowel Sounds, Soft Edema: Yes Edema: LLE: Trace, RLE: Trace Labs: CBC, BMP 01/14/17 06:45 01/14/17 06:45 Problem List - Problems (1) Diabetes mellitus Code(s): E11.9 - TYPE 2 DIABETES MELLITUS WITHOUT COMPLICATIONS Qualifiers: Diabetes mellitus type: type 2 (2) Hypercholesterolemia Code(s): E78.00 - PURE HYPERCHOLESTEROLEMIA, UNSPECIFIED (3) Shortness of breath Code(s): R06.02 - SHORTNESS OF BREATH (4) Traumatic compression fracture of T7 thoracic vertebra Code(s): S22.060A - WEDGE COMPRESSION FRACTURE OF T7-T8 VERTEBRA, INIT (5) COPD (chronic obstructive pulmonary disease) with chronic bronchitis Code(s): J44.9 - CHRONIC OBSTRUCTIVE PULMONARY DISEASE, UNSPECIFIED (6) HTN (hypertension) Code(s): I10 - ESSENTIAL (PRIMARY) HYPERTENSION Qualifiers: Hypertension type: essential hypertension Qualified Code(s): I10 - Essential (primary) hypertension (7) IDDM (insulin dependent diabetes mellitus) Code(s): E11.9 - TYPE 2 DIABETES MELLITUS WITHOUT COMPLICATIONS Z79.4 - ALF (CURRENT) USE OF INSULIN Assessment/Plan transthoracic echocardiography (05/08/16) showed normal LV systolic function, dense MAC, mild MR and TR. Dobutamine Myocardial Perfusion imaging (07/30/16) showed small apical thinning with normal LVEF 84% 1. Compression fracture of thoracic vertebral body (T7) post kyphoplasty and biopsy 2. Hypertension 3. Insulin requiring diabetes mellitus 4. Hypercholesterolemia 5. COPD 6. OSAS 7. Pulmonary HTN PLAN: 1. Continue present cardiac medications including Cardizem CD 120 qd, Lipitor 10 qhs, Aldactone 25 qd and Furosemide 120 bid Monitor renal function and electrolytes 2. Pain management 3. Bronchodilators, O2, IS, abx and ambulate as tolerated.
[2017-01-14] MEDS ORDERED: oxyCODONE HCL 5 MG TABLET PO PRN (11:41)
--- NOTE | 2017-01-14 11:50 | PN ---
Progress Note, Physician History of Present Illness: Pt with back pain, staqtes thet she is not better after procedure, want pain medication changed back to PO No SOB, CP, Palp, Cough, abd pain - Current Medication List Current Medications: Active Medications Albuterol/Ipratropium (Duoneb -) 1 amp NEB Q4H PRN PRN Reason: SHORTNESS OF BREATH Atorvastatin Calcium (Lipitor -) 10 mg PO HS [facility] Last Admin: 01/13/17 21:12 Dose: 10 mg Azithromycin (Zithromax -) 500 mg PO DAILY [facility] Stop: 01/15/17 23:59 Last Admin: 01/14/17 10:07 Dose: 500 mg Budesonide/Formoterol Fumarate (Symbicort 80/4.5mcg -) 2 puff IH BID [facility] Last Admin: 01/14/17 10:07 Dose: 2 puff Diltiazem HCl (Cardizem Cd -) 120 mg PO DAILY [facility] Last Admin: 01/14/17 10:05 Dose: 120 mg Docusate Sodium (Colace -) 100 mg PO BID PRN PRN Reason: CONSTIPATION Last Admin: 01/14/17 10:14 Dose: 100 mg Folic Acid (Folic Acid -) 1 mg PO DAILY [facility] Last Admin: 01/14/17 10:05 Dose: 1 mg Furosemide (Lasix -) 120 mg PO BID@0600,1400 [facility] Last Admin: 01/14/17 06:24 Dose: 120 mg Guaifenesin (Robitussin -) 10 ml PO Q4H PRN PRN Reason: COUGH Insulin Aspart (Novolog Vial Sliding Scale -) 1 vial SQ ACHS [facility] PRN Reason: Protocol Last Admin: 01/14/17 11:29 Dose: 2 units Insulin Detemir (Levemir Vial) 20 units SQ HS [facility] Last Admin: 01/13/17 21:13 Dose: 20 unit Insulin Detemir (Levemir Vial) 18 units SQ AM [facility] Last Admin: 01/14/17 06:23 Dose: 18 unit Lidocaine (Lidoderm Patch -) 2 patch TP DAILY [facility] Last Admin: 01/14/17 10:21 Dose: 2 patch Magnesium Hydroxide (Milk Of Magnesia -) 30 ml PO BID PRN PRN Reason: CONSTIPATION Methocarbamol (Robaxin -) 750 mg PO QID [facility] Last Admin: 01/14/17 10:15 Dose: 750 mg Mometasone Furoate (Asmanex 220mcg -) 2 puff IH BID [facility] Last Admin: 01/14/17 10:07 Dose: 2 puff Montelukast Sodium (Singulair -) 10 mg PO HS [facility] Last Admin: 01/13/17 21:14 Dose: 10 mg Oxycodone HCl (Roxicodone -) 10 mg PO Q6H PRN PRN Reason: PAIN SCALE 6-10 Pantoprazole Sodium (Protonix -) 40 mg PO DAILY [facility] Last Admin: 01/14/17 10:06 Dose: 40 mg Polyethylene Glycol (Miralax (For Daily Use) -) 17 gm PO DAILY [facility] Last Admin: 01/14/17 10:06 Dose: Not Given Potassium Chloride (K-Dur -) 40 meq PO BID [facility] Last Admin: 01/14/17 10:05 Dose: 40 meq Spironolactone (Aldactone -) 25 mg PO DAILY [facility] Last Admin: 01/14/17 10:05 Dose: 25 mg Vitamin A/Vitamin D (Vitamin A & D Top Oint -) 1 applic TP Q6HPO [facility] Last Admin: 01/14/17 06:15 Dose: Not Given Zolpidem Tartrate (Ambien -) 5 mg PO HS PRN PRN Reason: INSOMNIA Last Admin: 01/13/17 23:54 Dose: 5 mg - Objective Vital Signs: Vital Signs Temperature 98.4 F 01/14/17 06:00 Pulse Rate 96 H 01/14/17 10:05 Respiratory Rate 20 01/14/17 06:00 Blood Pressure 117/61 01/14/17 06:00 O2 Sat by Pulse Oximetry (%) 98 01/14/17 10:05 Constitutional: Yes: No Distress, Other (sitting in the chair) Cardiovascular: Yes: Regular Rate and Rhythm, S1, S2 Respiratory: Yes: Regular, Rhonchi (scaterred bilat.), Wheezes (minimal, scattered) Gastrointestinal: Yes: Normal Bowel Sounds, Soft. No: Tenderness Integumentary: Yes: Venous Stasis Changes Neurological: Yes: Alert, Oriented Labs: CBC, BMP 01/14/17 06:45 01/14/17 06:45 Problem List - Problems (1) Traumatic compression fracture of T7 thoracic vertebra Assessment/Plan: s/p Kyphoplasty yesterday. Per Dr. Gray note - from yesterday- to consider DC ; I d/w pt; to find out is PT can be started today ( from Dr. Gray). Cardio eval and f/u appreciated. Pain control- to change back to Oxycodone. Incentive spirometry. Code(s): S22.060A - WEDGE COMPRESSION FRACTURE OF T7-T8 VERTEBRA, INIT (2) COPD (chronic obstructive pulmonary disease) with chronic bronchitis Assessment/Plan: O2 supplementation. Asmanex Albuterol nebulized, PRN Code(s): J44.9 - CHRONIC OBSTRUCTIVE PULMONARY DISEASE, UNSPECIFIED (3) HTN (hypertension) Assessment/Plan: Cont meds To monitor BP Code(s): I10 - ESSENTIAL (PRIMARY) HYPERTENSION Qualifiers: Hypertension type: essential hypertension Qualified Code(s): I10 - Essential (primary) hypertension (4) Hypercholesterolemia Assessment/Plan: Cont. Rx. Code(s): E78.00 - PURE HYPERCHOLESTEROLEMIA, UNSPECIFIED (5) Diabetes mellitus Assessment/Plan: insuline SQ Diet Code(s): E11.9 - TYPE 2 DIABETES MELLITUS WITHOUT COMPLICATIONS Qualifiers: Diabetes mellitus type: type 2
[2017-01-14] MEDS: ALBUTEROL SO4 2.5/IPRATROPIUM 0.5 INH SOL 3 ML VIAL.NEB. NEB PRN ×2 (13:35→18:45)
--- NOTE | 2017-01-14 19:08 | PN ---
Progress Note (short form) - Note Progress Note: Patient seen and examined today. patient reports some improvement in her pain but she continues to have trouble taking a deep breath due to pain. The patient would benefit from short term rehab. Her activity is only limited by pain- there are no formal restrictions. The patient can follow up with me as an outpatient.
[2017-01-14] MEDS: MONTELUKAST NA 10 MG TABLET PO SCH (22:01)
[2017-01-14] MEDS: ATORVASTATIN CA 10 MG TABLET (FP) PO SCH (22:01)
[2017-01-14] MEDS: ZOLPIDEM TARTRATE 5 MG TABLET PO PRN (23:21)
[2017-01-15] MEDS: VITAMINS A AND D TOPICAL OINTMENT 60 GM TUBE TP SCH ×3 (00:05→13:32)
[2017-01-15] MEDS: FUROSEMIDE 40 MG TABLET (FP) PO SCH ×2 (05:25→13:32)
[2017-01-15] MEDS: INSULIN DETEMIR 100 UNITS/ML MDV SQ SCH ×2 (06:37→21:50)
[2017-01-15] MEDS: INSULIN SLIDING SCALE (NOVOLOG) 1 VIAL SQ SCH ×4 (06:37→21:50)
[2017-01-15] MEDS ORDERED: PT OWN MED DRAWER 7, Y5N ONE (09:08)
[2017-01-15] MEDS: MOMETASONE FUROATE 220 MCG/IH INHALER IH SCH ×3 (09:10→21:39)
[2017-01-15] MEDS: POTASSIUM CHLORIDE TABS 20 MEQ TABLET.ER (FP) PO SCH ×2 (09:11→21:39)
[2017-01-15] MEDS: SPIRONOLACTONE 25 MG TABLET (FP) PO SCH (09:11)
[2017-01-15] MEDS: FOLIC ACID 1 MG TABLET (FP) PO SCH (09:11)
[2017-01-15] MEDS: LIDOCAINE 5% TOPICAL PATCH TP SCH (09:12)
[2017-01-15] MEDS: POLYETHYLENE GLYCOL 3350 119 GM BTL PO SCH (09:12)
[2017-01-15] MEDS: BUDESONIDE/FORMETEROL FUMARATE 80/4.5 mcg INHALER IH SCH ×2 (09:13→21:42)
[2017-01-15] MEDS: PANTOPRAZOLE 40 MG TABLET (FP) PO SCH (09:13)
[2017-01-15] MEDS: METHOCARBAMOL 500 MG TABLET PO SCH ×4 (09:13→21:41)
[2017-01-15] MEDS: AZITHROMYCIN 250 MG TABLET (FP) PO SCH (09:14)
--- NOTE | 2017-01-15 09:55 | DS ---
Physical Examination Vital Signs: Vital Signs Temperature 98.4 F 01/15/17 05:56 Pulse Rate 85 01/15/17 05:56 Respiratory Rate 20 01/15/17 05:56 Blood Pressure 133/72 01/15/17 05:56 O2 Sat by Pulse Oximetry (%) 98 01/14/17 21:00 Findings/Remarks: Pt still with back pain, better controlled. Pt w/o SOB, [employer], palp., abd pain Constitutional: Yes: No Distress, Calm Cardiovascular: Yes: Regular Rate and Rhythm, S1, S2 Respiratory: Yes: Regular, CTA Bilaterally, Other (coarse at abses) Gastrointestinal: Yes: Normal Bowel Sounds, Soft. No: Tenderness Integumentary: Yes: Venous Stasis Changes Labs: CBC, BMP 01/14/17 06:45 01/14/17 06:45 Discharge Summary Reason For Visit: SOB 7TH VERTEBRA THORATIC FX Current Active Problems Chest pain (Acute) Constipation (Acute) Diabetes mellitus (Acute) Hypercholesterolemia (Acute) Shortness of breath (Acute) Traumatic compression fracture of T7 thoracic vertebra (Acute) Hospital Course: Pt came to ER, per her pain management physician, with back pain, recent thoracic area vertebral fracture; pt underwent kyphoplasty; she needs acute rehab. Condition: Fair - Instructions Diet, Activity, Other Instructions: ADA, low salt, low cholesterol diet. PT as tolerated CBC, BMP next week Referrals: José Curran MD [Primary Care Provider] - Deion Gray MD [Staff Physician] - (as directed) Disposition: RETIREMENT FACILITY - Home Medications Comprehensive Discharge Medication List: Ambulatory Orders Atorvastatin Ca [Lipitor] 10 mg PO HS 05/28/16 Diltiazem HCl [Diltiazem 24Hr Cd] 120 mg PO DAILY 05/28/16 Folic Acid 1 mg PO DAILY 05/28/16 Montelukast Na [Singulair -] 10 mg PO HS 05/28/16 Pantoprazole Sodium [Protonix] 40 mg PO DAILY 05/28/16 Spironolactone 25 mg PO DAILY 05/28/16 Zolpidem Tartrate [Ambien] 10 mg PO HS 05/28/16 Insulin Glargine,Hum.rec.anlog [Lantus (10mL VIAL) -] 18 units SQ AM 10/09/16 Insulin Glargine,Hum.rec.anlog [Lantus (10mL VIAL) -] 20 units SQ HS 10/09/16 Furosemide [Lasix -] 120 mg PO BID@0600,1400 tablet 10/21/16 Mometasone Furoate [Asmanex 220Mcg -] 2 puff IH BID inhaler 10/21/16 Oxycodone HCl [Roxicodone -] 10 mg PO Q6H PRN #0 tablet MDD 4 tabs 10/21/16 Polyethylene Glycol 3350 [Miralax 119 gm Btl -] 17 gm PO DAILY PRN #0 bottle
[2017-01-15] MEDS: DOCUSATE SODIUM 100 MG CAPSULE (FP) PO PRN (10:32)
[2017-01-15] MEDS: ALBUTEROL SO4 2.5/IPRATROPIUM 0.5 INH SOL 3 ML VIAL.NEB. NEB PRN ×2 (10:49→17:39)
--- NOTE | 2017-01-15 11:49 | PN ---
Progress Note, Physician History of Present Illness: Reports cough and wheeze improving, back discomfort improving. - Current Medication List Current Medications: Active Medications Albuterol/Ipratropium (Duoneb -) 1 amp NEB Q4H PRN PRN Reason: SHORTNESS OF BREATH Last Admin: 01/15/17 10:49 Dose: 1 amp Atorvastatin Calcium (Lipitor -) 10 mg PO HS [facility] Last Admin: 01/14/17 22:01 Dose: 10 mg Azithromycin (Zithromax -) 500 mg PO DAILY [facility] Stop: 01/15/17 23:59 Last Admin: 01/15/17 09:14 Dose: 500 mg Budesonide/Formoterol Fumarate (Symbicort 80/4.5mcg -) 2 puff IH BID [facility] Last Admin: 01/15/17 09:13 Dose: 2 puff Diltiazem HCl (Cardizem Cd -) 120 mg PO DAILY [facility] Last Admin: 01/15/17 09:11 Dose: 120 mg Docusate Sodium (Colace -) 100 mg PO BID PRN PRN Reason: CONSTIPATION Last Admin: 01/15/17 10:32 Dose: 100 mg Folic Acid (Folic Acid -) 1 mg PO DAILY [facility] Last Admin: 01/15/17 09:11 Dose: 1 mg Furosemide (Lasix -) 120 mg PO BID@0600,1400 [facility] Last Admin: 01/15/17 05:25 Dose: 120 mg Guaifenesin (Robitussin -) 10 ml PO Q4H PRN PRN Reason: COUGH Hydromorphone HCl (Dilaudid -) 4 mg PO Q4H PRN PRN Reason: PAIN Last Admin: 01/15/17 09:19 Dose: 4 mg Insulin Aspart (Novolog Vial Sliding Scale -) 1 vial SQ ACHS [facility] PRN Reason: Protocol Last Admin: 01/15/17 11:33 Dose: 2 units Insulin Detemir (Levemir Vial) 20 units SQ HS [facility] Last Admin: 01/14/17 22:16 Dose: 20 unit Insulin Detemir (Levemir Vial) 18 units SQ AM [facility] Last Admin: 01/15/17 06:37 Dose: 18 unit Lidocaine (Lidoderm Patch -) 2 patch TP DAILY [facility] Last Admin: 01/15/17 09:12 Dose: 2 patch Magnesium Hydroxide (Milk Of Magnesia -) 30 ml PO BID PRN PRN Reason: CONSTIPATION Methocarbamol (Robaxin -) 750 mg PO QID [facility] Last Admin: 01/15/17 09:13 Dose: 750 mg Mometasone Furoate (Asmanex 220mcg -) 2 puff IH BID [facility] Last Admin: 01/15/17 09:11 Dose: 2 puff Montelukast Sodium (Singulair -) 10 mg PO HS [facility] Last Admin: 01/14/17 22:01 Dose: 10 mg Pantoprazole Sodium (Protonix -) 40 mg PO DAILY [facility] Last Admin: 01/15/17 09:13 Dose: 40 mg Polyethylene Glycol (Miralax (For Daily Use) -) 17 gm PO DAILY [facility] Last Admin: 01/15/17 09:12 Dose: Not Given Potassium Chloride (K-Dur -) 40 meq PO BID [facility] Last Admin: 01/15/17 09:11 Dose: 40 meq Spironolactone (Aldactone -) 25 mg PO DAILY [facility] Last Admin: 01/15/17 09:11 Dose: 25 mg Vitamin A/Vitamin D (Vitamin A & D Top Oint -) 1 applic TP Q6HPO [facility] Last Admin: 01/15/17 05:31 Dose: 1 applic Zolpidem Tartrate (Ambien -) 5 mg PO HS PRN PRN Reason: INSOMNIA Last Admin: 01/14/17 23:21 Dose: 5 mg - Objective Vital Signs: Vital Signs Temperature 98.4 F 01/15/17 05:56 Pulse Rate 85 01/15/17 05:56 Respiratory Rate 20 01/15/17 05:56 Blood Pressure 133/72 01/15/17 05:56 O2 Sat by Pulse Oximetry (%) 98 01/14/17 21:00 Constitutional: Yes: No Distress, Calm Neck: Yes: Supple Cardiovascular: Yes: Regular Rate and Rhythm Respiratory: Yes: Regular, Diminished Gastrointestinal: Yes: Normal Bowel Sounds, Soft Edema: Yes Edema: LLE: Trace, RLE: Trace Labs: CBC, BMP 01/14/17 06:45 01/14/17 06:45 Problem List - Problems (1) Diabetes mellitus Code(s): E11.9 - TYPE 2 DIABETES MELLITUS WITHOUT COMPLICATIONS Qualifiers: Diabetes mellitus type: type 2 (2) Hypercholesterolemia Code(s): E78.00 - PURE HYPERCHOLESTEROLEMIA, UNSPECIFIED (3) Shortness of breath Code(s): R06.02 - SHORTNESS OF BREATH (4) Traumatic compression fracture of T7 thoracic vertebra Code(s): S22.060A - WEDGE COMPRESSION FRACTURE OF T7-T8 VERTEBRA, INIT (5) COPD (chronic obstructive pulmonary disease) with chronic bronchitis Code(s): J44.9 - CHRONIC OBSTRUCTIVE PULMONARY DISEASE, UNSPECIFIED (6) HTN (hypertension) Code(s): I10 - ESSENTIAL (PRIMARY) HYPERTENSION Qualifiers: Hypertension type: essential hypertension Qualified Code(s): I10 - Essential (primary) hypertension (7) IDDM (insulin dependent diabetes mellitus) Code(s): E11.9 - TYPE 2 DIABETES MELLITUS WITHOUT COMPLICATIONS Z79.4 - HALFWAY (CURRENT) USE OF INSULIN (8) Status post kyphoplasty Code(s): Z98.890 - OTHER SPECIFIED POSTPROCEDURAL STATES Assessment/Plan transthoracic echocardiography (05/08/16) showed normal LV systolic function, dense MAC, mild MR and TR. Dobutamine Myocardial Perfusion imaging (07/30/16) showed small apical thinning with normal LVEF 84% 1. Compression fracture of thoracic vertebral body (T7) post kyphoplasty and biopsy 2. Hypertension 3. Insulin requiring diabetes mellitus 4. Hypercholesterolemia 5. COPD 6. OSAS 7. Pulmonary HTN PLAN: 1. Continue present cardiac medications including Cardizem CD 120 qd, Lipitor 10 qhs, Aldactone 25 qd and Furosemide 120 bid Monitor renal function and electrolytes 2. Pain management 3. Bronchodilators, O2, IS, abx and ambulate as tolerated.
--- NOTE | 2017-01-15 13:41 | PATH ---
Surgical Pathology Report Patient Name: DAVID THAO Med. Rec. #: [id number] /Age/Gender: 1955 (Age: 61) / F Account: [id number] Location: [facility] MED/SURG Taken: 01/13/2017 Received: 01/14/2017 Reported: 01/15/2017 Physicians: Deion Gray M.D. Specimen(s) Received BX T7 Clinical History T7 vertebra thoracic fracture Final Diagnosis T7 VERTEBRA, BIOPSY: SCATTERED FRAGMENTS OF FOCALLY NECROTIC BONE AND HEMORRHAGIC MATERIAL COMPATIBLE WITH FRACTURE SITE. NO MALIGNANCY IDENTIFIED IN THE EXAMINED MATERIAL. Electronically Signed Bruno Mcclelland M.D. Gross Description Received in formalin labeled "T7 biopsy" is a 1.5 x 1.1 x 0.2 cm aggregate of red-brown blood clot, possibly containing bone fragments. The formalin is filtered and the specimen is entirely submitted in one cassette, following decalcification. /01/14/2017 saudi01/14/2017
[2017-01-15] MEDS: DOCUSATE SODIUM 100 MG CAPSULE (FP) PO SCH (18:29)
[2017-01-15] MEDS: SENNOSIDES 8.6MG TABLET (FP) PO SCH (18:30)
[2017-01-15] MEDS: ATORVASTATIN CA 10 MG TABLET (FP) PO SCH (21:37)
[2017-01-15] MEDS: MONTELUKAST NA 10 MG TABLET PO SCH (21:37)
[2017-01-15] MEDS: ZOLPIDEM TARTRATE 5 MG TABLET PO PRN (21:37)
[2017-01-16] MEDS: VITAMINS A AND D TOPICAL OINTMENT 60 GM TUBE TP SCH ×2 (02:07→06:40)
[2017-01-16] MEDS: FUROSEMIDE 40 MG TABLET (FP) PO SCH (05:59)
[2017-01-16] MEDS: INSULIN SLIDING SCALE (NOVOLOG) 1 VIAL SQ SCH (06:33)
[2017-01-16] MEDS: INSULIN DETEMIR 100 UNITS/ML MDV SQ SCH (06:35)
[2017-01-16] MEDS: ALBUTEROL SO4 2.5/IPRATROPIUM 0.5 INH SOL 3 ML VIAL.NEB. NEB PRN (09:43)
[2017-01-16] MEDS ORDERED: PT OWN MED DRAWER 7, Y5N ONE (09:55)
[2017-01-16] MEDS: SPIRONOLACTONE 25 MG TABLET (FP) PO SCH (09:57)
[2017-01-16] MEDS: SENNOSIDES 8.6MG TABLET (FP) PO SCH (09:57)
[2017-01-16] MEDS: PANTOPRAZOLE 40 MG TABLET (FP) PO SCH (09:57)
[2017-01-16] MEDS: FOLIC ACID 1 MG TABLET (FP) PO SCH (09:57)
[2017-01-16] MEDS: POTASSIUM CHLORIDE TABS 20 MEQ TABLET.ER (FP) PO SCH (09:57)
[2017-01-16] MEDS: LIDOCAINE 5% TOPICAL PATCH TP SCH (09:57)
[2017-01-16] MEDS: DOCUSATE SODIUM 100 MG CAPSULE (FP) PO SCH (09:57)
[2017-01-16] MEDS: MOMETASONE FUROATE 220 MCG/IH INHALER IH SCH (09:58)
[2017-01-16] MEDS: POLYETHYLENE GLYCOL 3350 119 GM BTL PO SCH (09:58)
[2017-01-16] MEDS: BUDESONIDE/FORMETEROL FUMARATE 80/4.5 mcg INHALER IH SCH (09:59)
[2017-01-16] MEDS: METHOCARBAMOL 500 MG TABLET PO SCH (09:59)
--- NOTE | 2017-01-16 10:40 | PN ---
Progress Note, Physician History of Present Illness: Pt with back pain on and off No SOB, CP, Palp, Cough, abd pain. + constipation- she is refusing Miralax ( it was ordered) Pt is sitting in the chair. - Current Medication List Current Medications: Active Medications Albuterol/Ipratropium (Duoneb -) 1 amp NEB Q4H PRN PRN Reason: SHORTNESS OF BREATH Last Admin: 01/16/17 09:43 Dose: 1 amp Atorvastatin Calcium (Lipitor -) 10 mg PO HS [facility] Last Admin: 01/15/17 21:37 Dose: 10 mg Budesonide/Formoterol Fumarate (Symbicort 80/4.5mcg -) 2 puff IH BID [facility] Last Admin: 01/16/17 09:59 Dose: 2 puff Diltiazem HCl (Cardizem Cd -) 120 mg PO DAILY [facility] Last Admin: 01/16/17 09:56 Dose: 120 mg Docusate Sodium (Colace -) 100 mg PO BID PRN PRN Reason: CONSTIPATION Last Admin: 01/15/17 10:32 Dose: 100 mg Docusate Sodium (Colace -) 300 mg PO DAILY [facility] Last Admin: 01/16/17 09:57 Dose: 300 mg Folic Acid (Folic Acid -) 1 mg PO DAILY [facility] Last Admin: 01/16/17 09:57 Dose: 1 mg Furosemide (Lasix -) 120 mg PO BID@0600,1400 [facility] Last Admin: 01/16/17 05:59 Dose: Not Given Guaifenesin (Robitussin -) 10 ml PO Q4H PRN PRN Reason: COUGH Hydromorphone HCl (Dilaudid -) 4 mg PO Q4H PRN PRN Reason: PAIN Last Admin: 01/16/17 10:06 Dose: 4 mg Insulin Aspart (Novolog Vial Sliding Scale -) 1 vial SQ ACHS [facility] PRN Reason: Protocol Last Admin: 01/16/17 06:33 Dose: Not Given Insulin Detemir (Levemir Vial) 20 units SQ HS [facility] Last Admin: 01/15/17 21:50 Dose: 20 unit Insulin Detemir (Levemir Vial) 18 units SQ AM [facility] Last Admin: 01/16/17 06:35 Dose: 18 unit Lidocaine (Lidoderm Patch -) 2 patch TP DAILY [facility] Last Admin: 01/16/17 09:57 Dose: 2 patch Magnesium Hydroxide (Milk Of Magnesia -) 30 ml PO BID PRN PRN Reason: CONSTIPATION Methocarbamol (Robaxin -) 750 mg PO QID [facility] Last Admin: 01/16/17 09:59 Dose: 750 mg Mometasone Furoate (Asmanex 220mcg -) 2 puff IH BID [facility] Last Admin: 01/16/17 09:58 Dose: 2 puff Montelukast Sodium (Singulair -) 10 mg PO HS [facility] Last Admin: 01/15/17 21:37 Dose: 10 mg Pantoprazole Sodium (Protonix -) 40 mg PO DAILY [facility] Last Admin: 01/16/17 09:57 Dose: 40 mg Polyethylene Glycol (Miralax (For Daily Use) -) 17 gm PO DAILY [facility] Last Admin: 01/16/17 09:58 Dose: Not Given Potassium Chloride (K-Dur -) 40 meq PO BID [facility] Last Admin: 01/16/17 09:57 Dose: 40 meq Senna (Senna -) 1 tab PO DAILY [facility] Last Admin: 01/16/17 09:57 Dose: 1 tab Spironolactone (Aldactone -) 25 mg PO DAILY [facility] Last Admin: 01/16/17 09:57 Dose: 25 mg Vitamin A/Vitamin D (Vitamin A & D Top Oint -) 1 applic TP Q6HPO [facility] Last Admin: 01/16/17 06:40 Dose: Not Given Zolpidem Tartrate (Ambien -) 5 mg PO HS PRN PRN Reason: INSOMNIA Last Admin: 01/15/17 21:37 Dose: 5 mg - Objective Vital Signs: Vital Signs Temperature 97.9 F 01/16/17 07:43 Pulse Rate 94 H 01/16/17 07:43 Respiratory Rate 16 01/16/17 07:43 Blood Pressure 120/66 01/16/17 07:43 O2 Sat by Pulse Oximetry (%) 95 01/15/17 21:00 Constitutional: Yes: No Distress Cardiovascular: Yes: Regular Rate and Rhythm, S1, S2 Respiratory: Yes: Regular, CTA Bilaterally (except bases were BS are coarse) Gastrointestinal: Yes: Normal Bowel Sounds, Soft. No: Tenderness Integumentary: Yes: Venous Stasis Changes Neurological: Yes: Alert, Oriented Labs: CBC, BMP 01/14/17 06:45 01/14/17 06:45 Problem List - Problems (1) Traumatic compression fracture of T7 thoracic vertebra Assessment/Plan: s/p Kyphoplasty- Dr. Gray. Cardio eval and f/u appreciated. Pain control- is better Incentive spirometry. Code(s): S22.060A - WEDGE COMPRESSION FRACTURE OF T7-T8 VERTEBRA, INIT (2) COPD (chronic obstructive pulmonary disease) with chronic bronchitis Assessment/Plan: O2 supplementation. Asmanex Albuterol nebulized, PRN Code(s): J44.9 - CHRONIC OBSTRUCTIVE PULMONARY DISEASE, UNSPECIFIED (3) HTN (hypertension) Assessment/Plan: Cont meds To monitor BP Code(s): I10 - ESSENTIAL (PRIMARY) HYPERTENSION Qualifiers: Hypertension type: essential hypertension Qualified Code(s): I10 - Essential (primary) hypertension (4) Hypercholesterolemia Assessment/Plan: Cont. Rx. Code(s): E78.00 - PURE HYPERCHOLESTEROLEMIA, UNSPECIFIED (5) Diabetes mellitus Assessment/Plan: insuline SQ Diet Code(s): E11.9 - TYPE 2 DIABETES MELLITUS WITHOUT COMPLICATIONS Qualifiers: Diabetes mellitus type: type 2 Assessment/Plan To agreed to go to Rehab today.
[2017-01-16 11:00] VITALS: BP 128/68; PULSE 96; TEMP 98.7
== END 2017-01-16 10:45 | DRG 479 ==
LOC: JER 12:04 → JERBED 16:30 → UNDOADMIN 16:44 → JERBED 16:44 → J8W 17:48
PROVIDERS: ADMIT Specialist; ATTEND Specialist
PROC: 0P943ZX Drainage of Thoracic Vertebra, Percutaneous Approach, Diagnostic (ICD-10-PCS; 2017-01-13)
PROC: 0PU43JZ Supplement Thoracic Vertebra with Synthetic Substitute, Percutaneous Approach (ICD-10-PCS; 2017-01-13)
PROC: 0PS43ZZ Reposition Thoracic Vertebra, Percutaneous Approach (ICD-10-PCS; principal; 2017-01-13 17:00)
DX: S22.060A Wedge compression fracture of T7-T8 vertebra, initial encounter for closed fracture (principal); X58.XXXA Exposure to other specified factors, initial encounter; Y93.9 Activity, unspecified; Y92.89 Other specified places as the place of occurrence of the external cause; Y99.9 Unspecified external cause status; J44.9 Chronic obstructive pulmonary disease, unspecified; E11.9 Type 2 diabetes mellitus without complications; Z79.4 Long term (current) use of insulin; I27.2 Other secondary pulmonary hypertension; G47.33 Obstructive sleep apnea (adult) (pediatric); R07.9 Chest pain, unspecified; E78.5 Hyperlipidemia, unspecified; Z87.891 Personal history of nicotine dependence; K21.9 Gastro-esophageal reflux disease without esophagitis; E87.6 Hypokalemia; K59.00 Constipation, unspecified; I10 Essential (primary) hypertension
CPT/HCPCS: 36415; 36600; 71010-TC; 72128-TC; 76000-TC; 80048; 80053; 81003; 81015; 82375; 82550; 82803; 83050; 83880; 84484; 85025; 85027; 88305-TC; 88311-TC; 93005; 93010; 94010; 94640; 94760; 96372; 97116-GP; 97162-PG; 99281-25; 99285-25